=== PATIENT | female | born 1975 | race Two or more races ===

== ENCOUNTER 2024-04-22 10:23 | Outpatient (OUT) | payer OTHER, SELFPAY ==
[2024-04-22 10:59] LABS: Basophils Percent Auto 0.2 % (0.2-2.0); Eosinophils Absolute Auto 0.1 10^3/uL (0.0-0.7); Eosinophils Percent Auto 1.1 % (0.9-7.0); Hematocrit 38.5 % (36.0-48.0); Hemoglobin 12.7 g/dL (12.0-16.0); Immature Granulocytes Abs Auto 0.01 10^3/uL (0.00-0.03); Immature Granulocytes Pct Auto 0.2 % (0.0-0.5); Lymphocytes Percent Auto 21.2 % (20.5-60.0); Mean Corpuscular Hemoglobin 29.5 pg (26.7-34.0); Mean Corpuscular Volume 89.5 fL (81.0-99.0); Mean Platelet Volume 10.6 fL (9.5-13.5); Monocytes Absolute Auto 0.2 10^3/uL (0.3-0.8); Monocytes Percent Auto 4.8 % (1.7-12.0); Neutrophils Absolute Auto 3.3 10^3/uL (1.4-6.5); Neutrophils Percent Auto 72.5 % (43.0-75.0); Platelet Count 208 10^3/uL (150-450); Red Cell Distribution Width 13.1 % (11.0-15.0); White Blood Count 4.6 10^3/uL (4.0-11.0)
[2024-04-22 11:11] LABS: Estimated Average Glucose 166 mg/dL; Glycohemoglobin A1C 7.4 % (4.5-6.2)
[2024-04-22 11:36] LABS: Alanine Aminotransferase 22 U/L (14-59); Albumin Globulin Ratio 1.2; Albumin Level 3.6 g/dL (3.4-5.0); Alkaline Phosphatase 80 U/L (46-116); Anion Gap 10.9; Aspartate Amino Transferase 16 U/L (15-37); BUN Creatinine Ratio 31.7; Bilirubin Total 0.6 mg/dL (0.2-1.0); Calcium 8.8 mg/dL (8.5-10.1); Carbon Dioxide 28.4 mmol/L (21.0-32.0); Chloride 104 mmol/L (98-107); Chol HDL Ratio 2.2; Cholesterol 181 mg/dL (<=200); Estimated GFR (African America >60 (>=60); Estimated GFR (Non-African Ame >60 (>=60); Free T3 2.27 pg/mL (2.18-3.98); Glucose 164 mg/dL (74-106); HDL Cholesterol 83 mg/dL (40-60); Potassium 4.3 mmol/L (3.5-5.1); Sodium 139 mmol/L (136-145); Thyroid Stimulating Hormone 2.459 uIU/mL (0.358-3.740); Total Protein 6.6 g/dL (6.4-8.2); Triglycerides 33 mg/dL (<=150); VLDL CHOLESTEROL 6.6 mg/dL
== END 2024-04-22 10:24 | disposition home or self-care (01) ==
LOC: LAB 10:29
PROVIDERS: PCP Family Medicine; Visit Provider Family Medicine
DX: E78.5 Hyperlipidemia, unspecified (principal); E10.9 Type 1 diabetes mellitus without complications; Z79.899 Other long term (current) drug therapy; D64.9 Anemia, unspecified; E03.9 Hypothyroidism, unspecified; R30.0 Dysuria; R73.9 Hyperglycemia, unspecified; R53.83 Other fatigue
CPT/HCPCS: 36415; 80053; 80061; 83036; 83540; 84436; 84443; 84481; 85025